=== PATIENT | female | born 1960 | race Caucasian/White ===

== ENCOUNTER → 2019-07-17 09:08 | Outpatient (CLI) | payer OTHER, SELFPAY ==
[2019-07-18 15:41] LABS: COVID19 Sendout NOT DETECTED (Not Detect)
== END ==
PROVIDERS: Visit Provider Registered Nurse
DX: Z01.812 Encounter for preprocedural laboratory examination (principal)
CPT/HCPCS: 87635

== ENCOUNTER 2019-07-20 08:33 | Day surgery (SDC) | payer OTHER, SELFPAY ==
[2019-07-17 15:18] VITALS: BMI 20.1
[2019-07-20] VITALS (8 sets, daily range): BP systolic 98–125; BP diastolic 58–79; PULSE 56–75; RESP 11–16; TEMP 36.2–36.5; O2SAT 96–100; BMI 19.0
--- NOTE | 2019-07-20 | PATH_ITS ---
[facility] Accession Number: [id number] . 01 Material submitted: . PART A: cervix - EXTERNAL CERVICAL OS PART B: cervix - INTERNAL CERVICAL OS PART C: endocervix - ENDOCERVICAL CURETTINGS . 02 Diagnosis: A. External Cervical Os, LEEP Biopsy: Focal, mild involvement by low-grade squamous intraepithelial lesion / MILIND-1. The apparent, inked margins are negative for dysplasia; electrocautery artifact is focally obscuring. No high grade dysplasia or invasive tumor identified. Possible previous instrumentation at the endocervical margin. . B. Cervix, Internal Cervical Os, LEEP Biopsy: Metaplastic squamous mucosa with reactive features; negative for squamous dysplasia or malignancy. Endocervical tissue; negative for glandular dysplasia or malignancy. Negative for dysplasia or malignancy. No definite biopsy site identified; electrocautery artifact is focally obscuring. . C. Endocervical Curettings: Avulsed squames with reactive features; negative for squamous dysplasia or malignancy. Endocervical tissue fragments; negative for glandular dysplasia or malignancy. [facility] 07/24/2019 1123 Local . 02 Electronically signed: . Estee Cervantes MD, Pathologist NPI- [id number] . 01 Gross description: . (A) Received in formalin, labeled external cervical os, is an unoriented cervical excision (diameter-1.8 x 1.0 cm, 0.4 cm in depth) with hussein-white smooth shiny mucosa. No nodules, masses or lesions are identified. The possible endocervical margin is inked orange and the possible ectocervical and stromal margins are inked blue. Radially sectioned and entirely submitted in cassettes A1-A3. (B) Received in formalin, labeled internal cervical os, is an unoriented intact cervical excision (diameter-1.3 x 1.0 cm, 0.5 cm in depth) with hussein smooth shiny mucosa. No nodules, masses or lesions are identified. The possible endocervical margin is inked orange and the possible ectocervical and stromal margins are inked blue. Radially sectioned and entirely submitted in cassettes B1-B4. (C) Received in formalin, labeled endocervical curettings, is turbid mucoid material containing multiple fragments of red-brown tissue (2.0 x 1.7 x 0.1 cm in aggregate). Filtered and entirely submitted in cassette C1. ([id number]) /MRV 07/21/2019 1244 Local . 02 Pathologist provided ICD-10: N87.0 . 02 CPT . 221633, [id number], [id number] Performed at: 01 [facility] [address] [id number] MD Vicente Vallecillo MD Phone: [phone] Performed at: 02 [facility] [id number] [place] [id number] MD Juliana Escalera MD Phone: [phone]
[2019-07-20] MEDS: LACTATED RINGERS 1,000 ML 100 ML IV (09:05)
--- NOTE | 2019-07-20 09:05 | PM.PREOP ---
Pre-operative Note COVID-19 COVID-19 status: Negative Result date/Date tested (Pos, Neg/Pending): 07/17/19 Interval Note History & Physical reviewed/Exam performed by Physician: Yes Changes to H&P: No
--- NOTE | 2019-07-20 10:00 | SUR.OPER ---
Lithotomy on padded OR bed, head on pillow, arms secured on padded arm boards at <90 degrees abduction. Legs secured in padded yellow fins stirrups.
[2019-07-20] MEDS: BUPIVACAINE 0.5% W/ EPI (PF) 30 ML VIAL INJ (10:08)
--- NOTE | 2019-07-20 10:08 | PM.OP.1 ---
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 on the cervix Closure Type: not applicable Specimen(s): other (External LEEP, internal LEEP, ECC) Estimated Blood Loss (mL): 0 Procedure in detail: Patient was brought to the operating room she underwent general. She was placed in low stirrups. A coated bivalve speculum was placed into the vagina. The cervix was injected with 0.5% Marcaine with epinephrine. A single-tooth tenaculum was placed on the anterior lip of the cervix. The cervix was stained with Lugol's. The loop set at 60 W of cutting was used to remove the entire squamocolumnar junction. A slightly deeper section was taken of the endocervical canal. An ECC was performed. The tissue was cauterized external to the LEEP with ball cautery to extend the treatment zone. Monsel's was placed. The patient went to recovery room in good condition. Counts of instruments and sponges were correct. The tissue was sent for pathology. Complications: none Post-operative Condition: stable Disposition: same day surgery Plan for aftercare: Avoid anything in vagina for 2 weeks. Follow-up based on biopsy results
[2019-07-20] MEDS: POTASSIUM IODIDE/IODINE 473 ML SOLUTION TOP (10:09)
--- NOTE | 2019-07-20 10:10 | SUR.OPER ---
Dr. Villar brought Milena's solution from clinic and used it at the end of the case.
== END 2019-07-20 10:51 | disposition home or self-care (01) ==
PROVIDERS: PCP Student in an Organized Health Care Education/Training Program; Referring Provider Specialist; Visit Provider Specialist
PROC: 0UBC7ZZ Excision of Cervix, Via Natural or Artificial Opening (ICD-10-PCS; CPT 57522; principal; 2019-07-20 09:45)
DX: N87.0 Mild cervical dysplasia (principal); E03.9 Hypothyroidism, unspecified; R87.810 Cervical high risk human papillomavirus (HPV) DNA test positive
CPT/HCPCS: 57522; J1100; J1885; J2250; J2405; J2704; J3010